=== PATIENT | male | born 1965 | race Caucasian/White ===

== ENCOUNTER 2023-11-10 11:33 | Emergency (ER) | payer OTHER, SELFPAY ==
--- NOTE | 2023-11-10 | ECG_ITS ---
Test Reason : cp Blood Pressure : / mmHG Vent. Rate : 086 BPM Atrial Rate : 086 BPM P-R Int : 134 ms QRS Dur : 106 ms QT Int : 374 ms P-R-T Axes : 025 -55 047 degrees QTc Int : 447 ms Normal sinus rhythm Incomplete right bundle branch block Left anterior fascicular block Septal infarct , age undetermined Abnormal ECG No previous ECGs available Referred By: Generic ED Physician Electronically Signed By:SYLVESTER INFANTE
--- NOTE | ~2023-11-10 | CT_ITS ---
EXAMINATION: CT ANGIOGRAM OF THE CHEST WITH AND WITHOUT CONTRAST (CT PULMONARY ANGIOGRAM FOR PE) CLINICAL INFORMATION: dyspnea COMPARISON: No pertinent prior studies are available for comparison. TECHNIQUE: Prior to contrast administration, noncontrast localization images were obtained. Subsequently, multidetector volumetric imaging was performed from the thoracic inlet to the pubic symphysis through the chest, abdomen, and pelvis following the administration of 80 mL Omnipaque 350 intravenous contrast. No contrast reaction reported Sagittal, coronal, and MIP oblique sagittal (through the chest only) reformatted images were obtained on the CT workstation, uploaded to PACS, and reviewed. This CT examination was performed using dose optimization techniques as appropriate, variously including the following: *Automated exposure control *Adjustment of mA and/or kV according to patient size (this includes techniques or standardized protocols for targeted exams where dose is matched to indication/reason for exam; i.e. extremities or head) *Use of iterative reconstruction technique Total exam dose-length product: 409 mGy-cm FINDINGS: QUALITY OF STUDY/CONTRAST BOLUS: Suboptimal. The pulmonary arteries are less well opacified in both the aorta and pulmonary veins. PULMONARY ARTERIES: No central or large segmental pulmonary emboli. In the left lower lobe, there is a question of a filling defect seen however I believe that this is some space in between the vessels rather than a definite acute pulmonary embolus CORONARY ARTERY CALCIUM: Extensive THORACIC AORTA: No aneurysm or dissection. LUNG: No focal consolidation, nodules or masses. PLEURA: No pleural effusion or pneumothorax. MEDIASTINUM: There is an enlarged right paracardiac/diaphragmatic lymph node present measuring 1.4 x 3.6 x 2.1 cm (5:41). Normal heart size. No pericardial effusion. No hilar or mediastinal lymphadenopathy. No evidence of septal bowing or right heart strain. CHEST WALL/AXILLA: No axillary or internal mammary lymphadenopathy. OSSEOUS STRUCTURES: No acute or suspicious osseous abnormality. VISUALIZED ABDOMEN: Partially visualized spleen is enlarged. Hepatic steatosis is suspected. There is a mildly prominent periceliac lymph node measuring 1.4 cm (5:55 mA left adrenal nodule may be partially imaged- if so this measures fat density and would be an adenoma. CT/CT angio chest PE protocol IMPRESSION: 1. No evidence of central or large segmental pulmonary emboli. Study has some limitations as discussed above. 2. Incidental note made of an enlarged right paracardiac/diaphragmatic lymph node, prominent periceliac lymph node, splenomegaly, hepatic steatosis and possible left adrenal adenoma. CT scan of the abdomen with oral and IV contrast may be useful for further evaluation. VTE: negative. Fleischner guidelines were followed. Electronically signed by: Adiel Martinez MD 11/10/2023 04:45 PM EDT
[2023-11-10 11:42] VITALS: BP 120/80; PULSE 80; O2SAT 98
[2023-11-10 11:46] VITALS: BP 127/75; PULSE 84; RESP 18; TEMP 36.2; O2SAT 99; BMI 38.0
--- NOTE | 2023-11-10 12:48 | ECG_ITS ---
Test Reason : CP/REPEAT Blood Pressure : / mmHG Vent. Rate : 079 BPM Atrial Rate : 079 BPM P-R Int : 144 ms QRS Dur : 116 ms QT Int : 402 ms P-R-T Axes : 030 -53 026 degrees QTc Int : 460 ms Normal sinus rhythm Right bundle branch block Left anterior fascicular block Bifascicular block Septal infarct (cited on or before 10-NOV-2023) Abnormal ECG When compared with ECG of 10-NOV-2023 11:45, No significant change was found Referred By: Gonzalez Burton Electronically Signed By:SYLVESTER INFANTE
--- NOTE | 2023-11-10 12:49 | ED.CHESTPAIN ---
HPI - Chest Pain General Chief Complaint: Chest Pain Stated Complaint: CP,DIZZY PER EMS Time Seen by Provider: 11/10/23 12:47 Source: patient Mode of arrival: EMS Limitations: no limitations History of Present Illness HPI narrative: This is a 58-year-old man with a past medical history of hypertension, hyperlipidemia, diabetes mellitus, CAD (IA 3 years ago status post PCI, NSTEMI September 2023) presents for evaluation of chest pain. Patient states that he woke up this morning from sleep with substernal chest pain. He states no radiation of his pain to his back or abdomen. He states no associated nausea or vomiting. Patient reports feeling shortness of breath and lightheaded at the time. He states no syncope. He states no recent febrile illness. He states no cough or congestion. He states no hemoptysis. He states no leg pain or swelling. He states no abdominal pain or back pain otherwise. Related Data Allergies Allergy/AdvReac Type Severity Reaction Status Date / Time No Known Allergies Allergy Verified 11/10/23 11:47 Review of Systems Review of Systems: ROS as per HPI [facility] Social History Social History Smoked in Last 30 Days: No Use of substances other than those prescribed or required for medical reasons: No Advance Directives: No Physical Exam Vital Signs: Vital Signs: Last Vital Signs Temp 97.8 F 11/10/23 13:58 Pulse 72 11/10/23 16:15 Resp 18 11/10/23 16:15 BP 133/69 11/10/23 16:15 Pulse Ox 97 11/10/23 16:15 O2 Del Method Room Air 11/10/23 16:15 BMI result Body Mass Index 38.2 Gen: NAD, AOx3 HEENT: NCAT, EOMI, normal conjunctiva CV: RRR, no murmurs appreciated, 1+ pretibial pitting edema Pulm: CTAB, no increased work of breathing GI: Soft, NTND, no rebound, guarding or rigidity MSK: No asymmetrical calf edema, calf erythema/TTP Neuro: Grossly non focal Medications Administered Generic Name Dose Route Start Last Admin Trade Name Freq PRN Reason Stop Dose Admin Heparin Sodium/Sodium Chloride 25,000 unit in 250 mls @ 0 mls/hr 11/10/23 14:00 11/10/23 15:16 Heparin Sodium,Porcine/1/2ns IVCONT 8.32 units/kg/hr .Q0M REBECCA 10 mls/hr Administration Protocol Per Protocol Discontinued Medications Generic Name Dose Route Start Last Admin Trade Name Vivian PRN Reason Stop Dose Admin Acetaminophen 975 mg 11/10/23 16:16 11/10/23 16:38 Acetaminophen 325 Mg Tablet PO 11/10/23 16:17 975 mg ONCE ONE Administration Heparin Sodium (Porcine) 4,000 unit 11/10/23 14:00 11/10/23 15:11 Heparin Sodium,Porcine 5,000 Unit/Ml Vial IVPUSH 11/10/23 14:01 4,000 unit ONCE ONE Administration Iohexol 100 ml 11/10/23 15:08 11/10/23 15:09 Iohexol 350 Mg/Ml 100 Ml Infus..Btl IV 11/10/23 15:09 65 ml ONCE ONE Administration Medical Decision Making Medical Decision Making MDM Narrative: Differential diagnosis includes, but isn't limited to ACS, decompensated heart failure, pneumothorax, pulmonary embolism. Exam as above is benign and reassuring. 1359 - patient's troponin returns at 65.2. I have repeated EKG, which demonstrates no STEMI. We will initiate heparin bolus/gtt. Given concern for NSTEMI. I have discussed patient's case with on-call gang plank workman, Dr. King, who agrees with current management and recommends transfer to higher level care. 1410- I have initiated transfer requested [facility]. I a.m. awaiting return call. 1449 - I discussed patient's case once again with [facility] and patient has been accepted for transfer to Dr. Singh as a direct admission. [facility] states that they are at capacity right now but are anticipating several discharges. They states they will call back once a bed is available for admission. They state the patient is not to be kept NPO and is permitted to eat at this time. We will place diet order. Will repeat troponin I reviewed diagnostic imaging as below. There is no evidence of venous thromboembolism. 1825 - I made aware that there is a bed available for the patient and as well initiate transfer via [facility] at this time. Patient is accepted as a direct admission to [facility] under care of Dr. Singh. Critical Care Time: A total of 45 minutes spent in direct patient care with coordinating critical resuscitation, procedures, reviewing records, discussing with consultants, reviewing labs, and/or managing patient. Admission/Observation Consideration of admission/observation: Escalation of care including admission/observation considered Lab Data MDM Lab Attestation statement: I reviewed the patient's lab results. I reviewed and interpreted the patient's labs which are most notable for elevated troponin of 65.2 decreasing to 63.2 on repeat. Otherwise labs are overall benign and reassuring. 11/10/23 14:31 11/10/23 14:31 Labs: Lab Results 11/10/23 11/10/23 Range/Units 13:20 14:31 WBC 4.9 5.3 (4.8-10.8) X10*3/uL RBC 5.71 5.49 (4.60-5.80) X10*6/uL Hgb 14.7 14.1 (14.0-18.0) g/dl Hct 44.5 42.6 (42.0-52.0) % MCV 77.9 L 77.6 L (80.0-98.0) fL MCH 25.7 L 25.7 L (27.0-33.0) pg MCHC 33.0 33.1 (31.0-36.0) g/dl RDW 15.3 15.2 (11.0-16.0) % Plt Count 149 L 157 L (160-400) X10*3/uL MPV 9.8 9.8 (9.4-12.4) fL Immature Gran % (Auto) 0.6 H (0.0-0.4) % Neut % (Auto) 59.9 (45-73) % Lymph % (Auto) 26.1 (20-40) % Wheeler % (Auto) 10.8 (2-11) % Eos % (Auto) 2.0 (0-4) % Baso % (Auto) 0.6 (0-2) % Lymph # (Auto) 1.3 (1.2-4.9) X10*3/uL Wheeler # (Auto) 0.5 (0.1-1.2) X10*3/uL Eos # (Auto) 0.1 (0.0-0.4) X10*3/uL Baso # (Auto) 0.0 (0.0-0.2) X10*3/uL Abs Immat Gran (auto) 0.03 (0.00-0.03) X10*3/uL Absolute Neuts (auto) 2.9 (2.0-8.3) x10*3/uL Absolute Nucleated RBC 0.000 0.000 (0.0-0.012) X10*3/uL Nucleated RBC % (auto) 0.0 0.0 (0.0-0.2) /100WBC PT 11.4 (10.9-12.4) SEC INR 1.0 (0.9-1.1) aPTT Heparin Protocol 30.7 L (53-77.9) SEC Sodium 141 (135-145) mmol/L Potassium 4.2 (3.3-5.1) mmol/L Chloride 109 H (96-108) mmol/L Carbon Dioxide 22 (22-29) mmol/L Anion Gap 14 (12-20) BUN 17 H (9-16) mg/dL Creatinine 0.79 (0.5-1.4) mg/dL Estim Creat Clear Calc 136.1 Estimated GFR > 60 Random Glucose 146 H (60-115) mg/dL Calcium 9.3 (8.4-10.2) mg/dL Total Bilirubin 0.5 (0.0-1.0) mg/dL AST 28 (5-37) U/L ALT 38 (0-40) U/L Alkaline Phosphatase 147 H (39-117) U/L Troponin I High Sens 65.2 H 63.2 H (<3.5-35.0) ng/L Total Protein 7.3 (6.5-8.0) g/dL Albumin 4.0 (3.5-5.0) g/dL Independent Interpretation I performed an independent interpretation of an: EKG Interpretation: I independently reviewed and interpreted the patient's EKG at 11:45 a.m. which demonstrates sinus rhythm at 86 beats per minute, WY 134, QRS 106, QTC 447, no STEMI I independently reviewed and interpreted the patient's EKG at 1:48 p.m., which demonstrates a sinus rhythm at 79 beats per minute, W[place] 144, QRS 116, QTC 460, no STEMI Radiology Impression Discussion of test interpretation with radiology: I have reviewed the radiologist's reading. Radiologist Impression: CT/CT angio chest PE protocol IMPRESSION: 1. No evidence of central or large segmental pulmonary emboli. Study has some limitations as discussed above. 2. Incidental note made of an enlarged right paracardiac/diaphragmatic lymph node, prominent periceliac lymph node, splenomegaly, hepatic steatosis and possible left adrenal adenoma. CT scan of the abdomen with oral and IV contrast may be useful for further evaluation. VTE: negative. Fleischner guidelines were followed. Electronically signed by: Adiel Martinez MD 11/10/2023 04:45 PM EDT RP Dictated By: Adiel Martinez MD Signed By: <Electronically signed by Adiel Martinez MD in OV> 11/10/23 1645 Discharge Plan Discharge Clinical Impression: Acute non-ST elevation myocardial infarction (NSTEMI) Patient Disposition: [facility] Transfer Details: Transfer to [facility] Print Language: Faroese
[2023-11-10 13:24] LABS: MANUAL DIFF FLAG NO
[2023-11-10 13:34] LABS: Basophils Percent Auto 0.6 % (0-2); Eosinophils Absolute Auto 0.1 X10*3/uL (0.0-0.4); Hematocrit 44.5 % (42.0-52.0); Hemoglobin 14.7 g/dl (14.0-18.0); Imm Gran Abs Auto 0.03 X10*3/uL (0.00-0.03); Imm Gran Pct Auto 0.6 % (0.0-0.4); Lymphocytes Absolute Auto 1.3 X10*3/uL (1.2-4.9); Lymphocytes Percent Auto 26.1 % (20-40); Mean Corpuscular Hemoglobin 25.7 pg (27.0-33.0); Mean Corpuscular Volume 77.9 fL (80.0-98.0); Mean Platelet Volume 9.8 fL (9.4-12.4); Monocytes Absolute Auto 0.5 X10*3/uL (0.1-1.2); Monocytes Percent Auto 10.8 % (2-11); Neutrophils Absolute Auto 2.9 x10*3/uL (2.0-8.3); Neutrophils Percent Auto 59.9 % (45-73); Platelet Count 149 X10*3/uL (160-400); Red Blood Count 5.71 X10*6/uL (4.60-5.80); Red Cell Distribution Width 15.3 % (11.0-16.0); White Blood Count 4.9 X10*3/uL (4.8-10.8)
[2023-11-10 13:47] LABS: Troponin-I High Sensitivity 65.2 ng/L (<3.5-35.0)
[2023-11-10 13:58] VITALS: BP 138/70; PULSE 80; RESP 18; TEMP 36.6; O2SAT 97
--- NOTE | 2023-11-10 13:59 | PC.NURSE ---
Pt BIBA from work, reports chest pain in substernal area since 4Am, woke him up, has since subsided. Pt also reports episodes of SOB and dizziness today while at work. Reports he has hx of 2 MIs, one is 2020 and one 1 month ago. Alert and oriented, breathing even and unlabored. Skin warm. NSR on bedside clinical evaluator. Reports pain is 2/10 at this time.
[2023-11-10 14:22] VITALS: BMI 38.2
[2023-11-10 14:44] LABS: Hematocrit 42.6 % (42.0-52.0); Hemoglobin 14.1 g/dl (14.0-18.0); Mean Corpuscular HGB Conc 33.1 g/dl (31.0-36.0); Mean Corpuscular Hemoglobin 25.7 pg (27.0-33.0); Mean Corpuscular Volume 77.6 fL (80.0-98.0); Mean Platelet Volume 9.8 fL (9.4-12.4); Platelet Count 157 X10*3/uL (160-400); Red Blood Count 5.49 X10*6/uL (4.60-5.80); Red Cell Distribution Width 15.2 % (11.0-16.0); White Blood Count 5.3 X10*3/uL (4.8-10.8)
[2023-11-10 14:46] LABS: Prothrombin Time 11.4 SEC (10.9-12.4)
[2023-11-10 14:49] LABS: PTT Heparin Drip 30.7 SEC (53-77.9)
[2023-11-10 14:54] LABS: Alanine Aminotransferase 38 U/L (0-40); Alkaline Phosphatase 147 U/L (39-117); Anion Gap 14 (12-20); Aspartate Amino Transferase 28 U/L (5-37); Bilirubin Total 0.5 mg/dL (0.0-1.0); Blood Urea Nitrogen 17 mg/dL (9-16); Calcium 9.3 mg/dL (8.4-10.2); Carbon Dioxide 22 mmol/L (22-29); Chloride 109 mmol/L (96-108); Creatinine Clr Calc Pharmacy 136.1; Estimated Glomerular Filt Rate > 60; Glucose Random 146 mg/dL (60-115); Potassium 4.2 mmol/L (3.3-5.1); Sodium 141 mmol/L (135-145); Total Protein 7.3 g/dL (6.5-8.0)
--- NOTE | 2023-11-10 15:00 | PC.NURSE ---
Pt taken to CT scan
[2023-11-10] MEDS: iohexoL 350 MG/ML 100 ML INFUS..BTL IV (15:09)
[2023-11-10] MEDS: Heparin Sodium,Porcine 5,000 UNIT/ML VIAL 4000 UNIT IVPUSH (15:11)
[2023-11-10] MEDS: Heparin Sodium,Porcine/1/2NS 25,000 UNIT/250 ML IV.SOLN 10 UNIT IVCONT (15:16)
--- NOTE | 2023-11-10 15:27 | PC.NURSE ---
Heparin drip started per protocol with 2 RNs verifying. Order for lab placed
[2023-11-10 15:54] LABS: Troponin-I High Sensitivity 63.2 ng/L (<3.5-35.0)
[2023-11-10 16:15] VITALS: BP 133/69; PULSE 72; RESP 18; O2SAT 97
[2023-11-10] MEDS: Acetaminophen 325 MG TABLET 975 MG PO (16:38)
[2023-11-10 18:38] VITALS: BP 138/70; PULSE 72; RESP 16; TEMP 36.4; O2SAT 98
[2023-11-10 19:01] VITALS: BP 138/70; PULSE 72; RESP 16; TEMP 36.4; O2SAT 98
== END 2023-11-10 19:02 | disposition short-term general hospital (02) ==
PROVIDERS: Emergency Provider Emergency Medicine
DX: I21.4 Non-ST elevation (NSTEMI) myocardial infarction (principal); R07.89 Other chest pain; R42 Dizziness and giddiness; E11.9 Type 2 diabetes mellitus without complications; I25.10 Atherosclerotic heart disease of native coronary artery without angina pectoris; Z79.899 Other long term (current) drug therapy
CPT/HCPCS: 36415; 71275; 80053; 84484; 85025; 85027; 85610; 85730; 93005; 96374; 99285; J1644; Q9967

== ENCOUNTER → 2023-11-12 23:59 | Outpatient (BNV) | payer OTHER, SELFPAY | PROVIDERS: Visit Provider Internal Medicine Cardiovascular Disease | DX: I21.4 Non-ST elevation (NSTEMI) myocardial infarction (principal) | CPT/HCPCS: 93458; 93571; 93572; 99152 ==